=== PATIENT | female | born 1975 | race Caucasian/White ===

== ENCOUNTER 2017-01-17 21:52 | Emergency (ER) | payer OTHER, MEDICAID ==
[~2017-01-17] VITALS: Ht 167.6 cm; Wt 97.1 kg
[2017-01-17 22:48] VITALS: BP 160/96
[2017-01-18] MEDS ORDERED: LIDOCAINE 1% HCL (LOCAL ANESTH.) INJ 20ML MDV IJ ONE (00:30)
[2017-01-18] MEDS ORDERED: BACITRACIN TOP OINT 1 UD PKG TOP ONE (00:30)
[2017-01-18] MEDS ORDERED: TETANUS-DIPTH-ACEL PERTUSSIS 0.5ML SYRG IM ONE (00:45)
== END 2017-01-18 01:54 | disposition home or self-care (01) ==
LOC: ER 22:02
DX: S91.011A Laceration without foreign body, right ankle, initial encounter (principal); Z88.6 Allergy status to analgesic agent; W22.8XXA Striking against or struck by other objects, initial encounter; Y93.89 Activity, other specified; Y99.8 Other external cause status; Y92.511 Restaurant or cafe as the place of occurrence of the external cause
CPT/HCPCS: 73630; 90471; 90715; 99284; J2001

== ENCOUNTER 2023-10-26 02:37 | Emergency (ER) | payer OTHER, MEDICAID ==
[~2023-10-26] VITALS: Ht 167.6 cm; Wt 100.0 kg
[2023-10-26 03:00] VITALS: BP 153/72; PULSE 97; RESP 18; O2SAT 95
[2023-10-26] MEDS ORDERED: PRED10TA PO (05:34)
[2023-10-26 05:38] LABS: Anion Gap 7 (5-15); BUN/Creatinine Ratio 13.7 (10.0-20.0); Basophils # (auto) 0.1 10 ^3/uL (0-0.2); Blood Urea Nitrogen 13 mg/dL (9-23); Calcium 9.6 mg/dL (8.7-10.4); Carbon Dioxide 24 mmol/L (20-30); Chloride 104 mmol/L (98-107); Eosinophils # (auto) 0.2 10 ^3/uL (0-0.8); Glucose 153 mg/dL (74-106); Hemoglobin 12.8 g/dL (12.2-16.2); Lymphocytes # (auto) 1.7 10 ^3/uL (0.4-5.4); Monocytes # (auto) 0.6 10 ^3/uL (0-1.3); Potassium 4.1 mmol/L (3.5-5.1); Sodium 135 mmol/L (136-145); Uric Acid 3.9 mg/dL (3.1-7.8); White Blood Cell 9.6 10^3/uL (4.4-10.8)
[2023-10-26 05:39] LABS: Basophils % (auto) 1.1 % (0.0-2.0); Eosinophils % (auto) 2.4 % (0.0-7.0); Hematocrit 39.7 % (36.0-46.0); Lymphocytes % (auto) 18.1 % (10.0-50.0); Mean Corpuscular Hemoglobin 27.6 pg (28.0-32.0); Mean Corpuscular Hgb Conc. 32.3 g/dL (32.0-36.0); Mean Corpuscular Volume 85.5 fL (80.0-100.0); Monocytes % (auto) 5.9 % (0.0-12.0); Neutrophils % (auto) 72.5 % (37.0-80.0); Red Blood Cells 4.64 10^6/uL (4.0-5.20)
[2023-10-26] MEDS: KETOROLAC TROMETH 60MG/2ML VIAL IM ONE (05:43)
[2023-10-26] MEDS: methylPREDNISolone SOD SUCC 125 MG/2 ML VL IM ONE (05:44)
== END 2023-10-26 05:48 | disposition home or self-care (01) ==
LOC: ER 02:37
DX: M06.842 Other specified rheumatoid arthritis, left hand (principal); M06.841 Other specified rheumatoid arthritis, right hand
CPT/HCPCS: 36415; 80048; 84550; 85025; 96372; 99284; J1885; J2930